=== PATIENT | male | born 1965 | race Native Hawaiian/Other Pacific Islander ===

== ENCOUNTER 2016-11-28 18:06 | Observation (INO) | payer BC ==
[2016-11-28] MEDS ORDERED: Sodium Chloride 0.9% 1,000 ML IV ONE (19:27)
--- NOTE | 2016-11-28 19:29 | C.PDOC ---
History Of Present Illness 51 year old male presents to the ED with complaints of intermittent chest pain to the left lateral chest wall area beginning last night. Patient states pain was most severe last night and he felt better this morning. He denies sweating, weakness, numbness, or shortness of breath. Chief Complaint (Nursing): Chest Pain History Per: Patient History/Exam Limitations: no limitations Onset/Duration Of Symptoms: Days (1 day ), Intermittent Episodes Current Symptoms Are (Timing): Still Present Severity: Severe Quality: "Pain" Recent travel outside of the [place]: No Past Medical History Reviewed: Historical Data, Nursing Documentation, Vital Signs Vital Signs: Last Vital Signs Temp 97.5 F L 11/29/16 02:38 Pulse 99 H 11/29/16 02:38 Resp 18 11/29/16 02:38 BP 148/65 11/29/16 02:38 Pulse Ox 100 11/29/16 02:38 - Medical History PMH: HTN, Hypercholesterolemia Family History: States: Unknown Family Hx - Social History Hx Alcohol Use: Yes Hx Substance Use: Yes - Immunization History Hx Tetanus Toxoid Vaccination: No Hx Influenza Vaccination: No Hx Pneumococcal Vaccination: No Review Of Systems Constitutional: Negative for: Fever, Chills, Sweats Cardiovascular: Positive for: Chest Pain. Negative for: Palpitations Respiratory: Negative for: Cough, Shortness of Breath Gastrointestinal: Negative for: Nausea, Vomiting, Abdominal Pain, Diarrhea Neurological: Negative for: Weakness, Numbness Physical Exam - Physical Exam Appears: Non-toxic, No Acute Distress Skin: Warm, Dry, No Diaphoretic Head: Atraumatic, Normacephalic Eye(s): bilateral: Normal Inspection, PERRL, EOMI Oral Mucosa: Moist Neck: Normal ROM, Supple Chest: Symmetrical, No Deformity, No Tenderness (non-reproducible on palpation ) Cardiovascular: Rhythm Regular, No Murmur Respiratory: Normal Breath Sounds, No Rales, No Rhonchi, No Wheezing Gastrointestinal/Abdominal: Soft, No Tenderness, No Distention, No Guarding, No Rebound Extremity: Normal ROM, No Tenderness, No Pedal Edema, No Calf Tenderness, Capillary Refill (good capillary refill, less than two seconds ), No Deformity, No Swelling Neurological/Psych: Oriented x3, Normal Speech, Normal Cognition, Normal Motor, Normal Sensation Gait: Steady ED Course And Treatment - Laboratory Results Result Diagrams: 11/28/16 19:29 11/28/16 19:29 ECG: Interpreted By Me, Viewed By Me ECG Rhythm: Sinus Rhythm, Nonspecific Changes ECG Interpretation: No Acute Changes, Abnormal Interpretation Of ECG: NSR, non spc. ST-T changes lateral leads. Rate From EC O2 Sat by Pulse Oximetry: 97 (room air ) Pulse Ox Interpretation: Normal - CT Scan/US CT Angiography Chest With Intravenous Contrast Other Rad Studies (CT/US): Read By Radiologist, Radiology Report Reviewed CT/US Interpretation: FINDINGS: Limitations: Motion artifact - mild. Pulmonary arteries: No pulmonary embolism. Aorta: No aneurysm. No dissection. Lungs: Minimal atelectasis/scarring. No consolidation. Few scattered peripheral reticulonodular. opacities. Few pulmonary nodules, up to 0.3 cm. Pleural space : No significant effusion. No pneumothorax. Heart: No cardiomegaly. No significant pericardial effusion. Bones/joints: No acute fracture. No dislocation. Soft tissues: Unremarkable. Lymph nodes: No pathologically enlarged lymph nodes. Kidneys and ureters: Too small to characterize lesion within LEFT kidney. IMPRESSION: 1. Reticulonodular opacities, nonspecific. Consider inflammatory, infectious, or less likely neoplastic. etiologies. 2. Pulmonary nodules. For low-risk patients, no follow-up is necessary. For high- risk patients. (smoking history or other known risk factors) an optional CT at 12 months could be performed. 3. Incidental/non-acute findings are described above. Progress Note: EKG, D-dimer, and CXR were ordered. Patient was given aspirin, toradol, and IV fluids. Disposition Discussed With : Shruthi Garcia Doctor Will See Patient In The: Hospital Counseled Patient/Family Regarding: Diagnosis - Disposition Disposition: HOSPITALIZED Disposition Time: 00:09 Condition: STABLE - POA Present On Arrival: None - Clinical Impression Clinical Impression: Chest pain - Scribe Statement The provider has reviewed the documentation as recorded by the Scribe Shivani iMller All medical record entries made by the Scribe were at my direction and personally dictated by me. I have reviewed the chart and agree that the record accurately reflects my personal performance of the history, physical exam, medical decision making, and the department course for this patient. I have also personally directed, reviewed, and agree with the discharge instructions and disposition.
[2016-11-28 19:35] LABS: BASO # 0.2 K/uL (0.0-0.2); BASO % 1.1 % (0.0-2.0); EOS # 0.9 K/uL (0.0-0.7); EOS % 5.2 % (0.0-4.0); HEMATOCRIT 39.7 % (35.0-51.0); LYMPH % 29.4 % (20.0-40.0); MEAN CELL VOLUME 92.3 fL (80.0-94.0); MEAN CORPUSCULAR HEMOGLOBIN 32.5 pg (27.0-31.0); MEAN CORPUSCULAR HGB CONC 35.2 g/dL (33.0-37.0); MEAN PLATELET VOLUME 10.3 fL (7.2-11.7); MONO # 0.8 K/uL (0.0-0.8); MONO % 4.9 % (0.0-10.0); NRBC % 0.1 % (0.0-2.0); RED CELL DISTRIBUTION WIDTH 13.4 % (11.5-14.5); WHITE BLOOD COUNT 16.9 K/uL (4.8-10.8)
[2016-11-28 19:43] LABS: CHLORIDE 104 mmol/L (98-107); POTASSIUM 3.9 mmol/L (3.6-5.2); SODIUM 140 mmol/L (132-148)
[2016-11-28 19:45] LABS: ALB/GLOB RATIO 1.2 (1.0-2.1); AST/SGOT 22 U/L (17-59); BILIRUBIN,TOTAL 0.4 mg/dL (0.2-1.3); CARBON DIOXIDE 22 mmol/L (22-30); GFR AFRICAN-AMERICAN > 60
[2016-11-28 19:46] LABS: ALKALINE PHOSPHATASE 67 U/L (38-126); ALT/SGPT 38 U/L (21-72); BLOOD UREA NITROGEN 17 mg/dL (9-20); CALCIUM 8.8 mg/dl (8.6-10.4); GLUCOSE,RANDOM 92 mg/dL (75-110)
[2016-11-28] MEDS ORDERED: Iohexol 300 100 ML IJ ONE (21:40)
--- NOTE | 2016-11-28 22:51 | CT ---
EXAM: CT Angiography Chest With Intravenous Contrast CLINICAL HISTORY: 51 years old, male; Pain; Chest pain; Left-sided chest pain; Additional info: Chest pain / elevated d-dimer TECHNIQUE: Axial computed tomographic angiography images of the chest with intravenous contrast using pulmonary embolism protocol. All CT scans at this facility use one or more dose reduction techniques, viz.: automated exposure control; ma/kV adjustment per patient size (including targeted exams where dose is matched to indication; i.e. head); or iterative reconstruction technique. MIP reconstructed images were created and reviewed. Coronal and sagittal reformatted images were created and reviewed. CONTRAST: 100 mL of omnipaque 300 administered intravenously. COMPARISON: No relevant prior studies available. FINDINGS: Limitations: Motion artifact - mild. Pulmonary arteries: No pulmonary embolism. Aorta: No aneurysm. No dissection. Lungs: Minimal atelectasis/scarring. No consolidation. Few scattered peripheral reticulonodular opacities. Few pulmonary nodules, up to 0.3 cm. Pleural space: No significant effusion. No pneumothorax. Heart: No cardiomegaly. No significant pericardial effusion. Bones/joints: No acute fracture. No dislocation. Soft tissues: Unremarkable. Lymph nodes: No pathologically enlarged lymph nodes. Kidneys and ureters: Too small to characterize lesion within LEFT kidney. IMPRESSION: 1. Reticulonodular opacities, nonspecific. Consider inflammatory, infectious, or less likely neoplastic etiologies. 2. Pulmonary nodules. For low-risk patients, no follow-up is necessary. For high-risk patients (smoking history or other known risk factors) an optional CT at 12 months could be performed. 3. Incidental/non-acute findings are described above.
--- NOTE | 2016-11-29 08:35 | RAD ---
HISTORY: chest pain COMPARISON: None available. TECHNIQUE: Chest PA and lateral FINDINGS: LUNGS: Biapical pleural thickening with upper lobe granulomatous changes. Diffuse increased interstitial lung markings. No focal infiltrate or effusion. PLEURA: No significant pleural effusion identified. No pneumothorax apparent. CARDIOVASCULAR: Normal. OSSEOUS STRUCTURES: No significant abnormalities. VISUALIZED UPPER ABDOMEN: Normal. OTHER FINDINGS: None. IMPRESSION: Biapical pleural thickening with upper lobe granulomatous changes. Diffuse increased interstitial lung markings. No focal infiltrate or effusion.
--- NOTE | 2016-11-29 08:53 | CP.PCM.PN ---
Subjective - Date & Time of Evaluation Date of Evaluation: 11/29/16 Time of Evaluation: 08:44 - Subjective Subjective: PGY-[address] Garcia's service: Pt seen and examined at bedside. Patient denies further episodes of chest pain overnight. He states he is able to tolerate diet, and walk halls without any further discomfort. Patient admits being referred by PMD to semiconductor manufacturing technician/ oncologist for persistent leukocytosis, but family at bedside does not remember name. They will bring in name with them later. Pt denies fever, chills, night sweats, recent travel, or sick contacts. Patient is a 51 year old male with PMHx of dyslipidemia and persistent leukocytosis, who presented to [facility] ED on 11/28/16 for chest pain. Patient reports the pain began late on Monday after eating salty/spicy food. He describes the pain as a "burning sensation" in his left chest, that lasted for "an hour or so", and did not radiate. Patient decided to come to hospital because of how long pain lasted. He denies recent stressors, anxiety, or lifting heavy objects. He denies metallic taste in mouth, cough, or increase in cavities. He further denies SOB, diaphoresis, leg edema, worsening with exertion , abdominal pain, fever/chills. Objective - Vital Signs/Intake and Output Vital Signs (last 24 hours): Temp Pulse Resp BP Pulse Ox 97.5 F L 67 20 148/65 97 11/29/16 02:38 11/29/16 04:21 11/29/16 04:05 11/29/16 02:38 11/29/16 04:23 - Medications Medications: Current Medications Aspirin (Ecotrin) 325 mg PO DAILY [facility] Clopidogrel Bisulfate (Plavix) 75 mg PO DAILY [facility] Enoxaparin Sodium (Lovenox) 40 mg SC DAILY [facility] Pantoprazole Sodium (Protonix Ec Tab) 40 mg PO DAILY [facility] Pneumococcal Polyvalent Vaccine (Pneumovax 23 Vaccine) 0.5 ml IM .ONCE ONE Stop: 12/02/16 14:01 - Labs Labs: 11/28/16 19:29 11/28/16 19:29 - Constitutional Appears: Non-toxic, No Acute Distress - Head Exam Head Exam: ATRAUMATIC, NORMOCEPHALIC - Eye Exam Eye Exam: EOMI, Normal appearance - ENT Exam ENT Exam: Mucous Membranes Moist - Neck Exam Neck Exam: Normal Inspection Additional comments: no jvd - Respiratory Exam Respiratory Exam: Clear to Ausculation Bilateral, NORMAL BREATHING PATTERN. absent: Rales, Rhonchi, Wheezes - Cardiovascular Exam Cardiovascular Exam: REGULAR RHYTHM, +S1, +S2 - GI/Abdominal Exam GI & Abdominal Exam: Soft, Normal Bowel Sounds. absent: Tenderness - Extremities Exam Extremities Exam: Normal Capillary Refill, Normal Inspection. absent: Tenderness - Back Exam Back Exam: absent: CVA tenderness (L), CVA tenderness (R) - Neurological Exam Neurological Exam: Alert, Awake, Oriented x3 Assessment and Plan - Assessment and Plan (Free Text) Plan: Chest pain - R/o ACS Admit to tele-obs EKG: NSR, 67 bpm, non-specific ST-t wave changes in lateral leads, early repolarization JENNIE panel: negative x 3 CXR (11/29/16): Biapical pleural thickening with upper lobe granulomatous changes. Diffuse increased interstitial lung markings. No focal infiltrates/ effusions (see full report) D-dimer: 248 CT Chest Angio (11/28/16): No pulmonary embolism. Reticulonodular opacities non- specific. Consider inflammatory, infectious, or neoplastic etiologies. Pulmonary nodules. Low-risk pts: no follow up necessary. For high risk pts ( smoking hx) optional CT at 12 months could be performed. Cardiology consult: Dr. Samuels, help appreciated - Atypical chest pain in pt with multiple risk factors - Exercise stress in AM - continue ASA/Plavix Elevated D-dimer D-dimer: 248 CT Chest Angio (11/28/16): Reticulonodular opacities non-specific. Consider inflammatory, infectious, or neoplastic etiologies. Pulmonary nodules. Low-risk pts: no follow up necessary. For high risk pts (smoking hx) optional CT at 12 months could be performed. (see report) - Pt with long-smoking history (25 years x 1/2 PPD), will need follow up CT in 12 months Leukocytosis WBC 16.9 on admission Pt admits referral to hem/onc by PMD for workup for persistent leukocytosis - family will bring in paperwork with doctor's name - will consider Hem consult, if that physician does not come to [facility] Pt afebrile - f/u on AM labs Prophylaxis Protonix 40 mg PO Daily Lovenox 40mg SC daily Pt ambulates Heart Healthy Diet Dallas Smith PGY-2 All medical management per Dr. Alexa Garcia.
[2016-11-29] MEDS: Aspirin 325 mg EC Tablets PO SCH (09:18)
[2016-11-29] MEDS: Pantoprazole 40 mg EC Tab PO SCH (09:18)
[2016-11-29] MEDS: Enoxaparin 40 mg Syringe SC SCH (09:19)
--- NOTE | 2016-11-29 18:38 | CP.PCM.CON ---
<CRESCENCIOANA ROSAMAHI - Last Filed: 11/29/16 18:38> History of Present Illness - History of Present Illness History of Present Illness: Alex Nieto DO PGY1 - Cardiology Consult Note for Dr. Samuels Consultation for chest pain HPI: 51 yo M with recently diagnosed hypertriglyceridemia, persistent leukocytosis, and chronic tobacco and alcohol abuse presented to ER complaining of CP. He reports that CP started last monday, after he ate some spicy food. Describes the pain as burning; nonradiating; lasted 1-2 hours then resolved spontaneously; worsened with deep inspiration. Denies exertional CP, SOB, abdominal pain, F/C, ROSALES, N/V, dizziness, diaphoresis, anxiety. PMH: Dyslipidemia PSH: None Meds: None Soc: Smokes 1/2 ppd x25 yrs; Drinks 8-10 beers 3 times per week; Denies illicits ; works as a general teller FHx: None All: NKDA ROS: As in HPI Past Patient History - Past Medical History & Family History Past Medical History?: Yes - Past Social History Smoking Status: Former Smoker - CARDIAC Hx Hypercholesterolemia: Yes Hx Hypertension: Yes - PULMONARY Hx Respiratory Disorders: No - NEUROLOGICAL Hx Neurological Disorder: No - HEENT Hx HEENT Problems: No - RENAL Hx Chronic Kidney Disease: No - ENDOCRINE/METABOLIC Hx Endocrine Disorders: No - HEMATOLOGICAL/ONCOLOGICAL Hx Blood Disorders: No - INTEGUMENTARY Hx Dermatological Problems: No - MUSCULOSKELETAL/RHEUMATOLOGICAL Hx Musculoskeletal Disorders: No Hx Falls: No - GASTROINTESTINAL Hx Gastrointestinal Disorders: No - GENITOURINARY/GYNECOLOGICAL Hx Genitourinary Disorders: No - PSYCHIATRIC Hx Substance Use: Yes - SURGICAL HISTORY Hx Surgeries: No - ANESTHESIA Hx Anesthesia: No Hx Anesthesia Reactions: No Hx Malignant Hyperthermia: No Has any member of the family had a problem w/ anesthesia?: No Meds Allergies/Adverse Reactions: Allergies Allergy/AdvReac Type Severity Reaction Status Date / Time No Known Allergies Allergy Unverified 11/28/16 18:17 - Medications Medications: Current Medications Aspirin (Ecotrin) 325 mg PO DAILY [facility] Last Admin: 11/29/16 09:18 Dose: 325 mg Clopidogrel Bisulfate (Plavix) 75 mg PO DAILY [facility] Last Admin: 11/29/16 09:18 Dose: 75 mg Enoxaparin Sodium (Lovenox) 40 mg SC DAILY [facility] Last Admin: 11/29/16 09:19 Dose: 40 mg Pantoprazole Sodium (Protonix Ec Tab) 40 mg PO DAILY [facility] Last Admin: 11/29/16 09:18 Dose: 40 mg Pneumococcal Polyvalent Vaccine (Pneumovax 23 Vaccine) 0.5 ml IM .ONCE ONE Stop: 12/02/16 14:01 Physical Exam - Constitutional Appears: Non-toxic, No Acute Distress - Head Exam Head Exam: ATRAUMATIC, NORMOCEPHALIC - Eye Exam Eye Exam: EOMI, Normal appearance - ENT Exam ENT Exam: Mucous Membranes Moist - Neck Exam Neck exam: Positive for: Full Rom, Normal Inspection - Respiratory Exam Respiratory Exam: Clear to Auscultation Bilateral, NORMAL BREATHING PATTERN. absent: Rales, Rhonchi, Wheezes - Cardiovascular Exam Cardiovascular Exam: RRR, +S1, +S2 - GI/Abdominal Exam GI & Abdominal Exam: Soft. absent: Tenderness - Extremities Exam Extremities exam: Negative for: calf tenderness, pedal edema - Neurological Exam Neurological exam: Alert, Oriented x3 - Psychiatric Exam Psychiatric exam: Normal Affect, Normal Mood - Skin Skin Exam: Dry, Intact Results - Vital Signs Recent Vital Signs: Last Vital Signs Temp 98.3 F 11/29/16 15:17 Pulse 66 11/29/16 15:17 Resp 18 11/29/16 15:17 BP 108/69 11/29/16 15:17 Pulse Ox 98 11/29/16 15:17 - Labs Result Diagrams: 11/28/16 19:29 11/28/16 19:29 Labs: Laboratory Results - last 24 hr 11/28/16 11/28/16 11/28/16 19:29 19:29 20:25 WBC 16.9 H RBC 4.30 L Hgb 14.0 D Hct 39.7 MCV 92.3 MCH 32.5 H MCHC 35.2 RDW 13.4 Plt Count 201 MPV 10.3 Neut % (Auto) 59.4 Lymph % (Auto) 29.4 [place] % (Auto) 4.9 Eos % (Auto) 5.2 H Baso % (Auto) 1.1 Neut # 10.0 H Lymph # 5.0 H [place] # 0.8 Eos # 0.9 H Baso # 0.2 D-Dimer, Quantitative 248 H Sodium 140 Potassium 3.9 Chloride 104 Carbon Dioxide 22 Anion Gap 19 BUN 17 Creatinine 0.8 Est GFR ( Amer) > 60 Est GFR (Non-Af Amer) > 60 Random Glucose 92 Calcium 8.8 Total Bilirubin 0.4 AST 22 ALT 38 Alkaline Phosphatase 67 Total Creatine Kinase CK-MB (Mass) Troponin I < 0.0120 Troponin I, Quant Total Protein 7.0 Albumin 3.8 Globulin 3.2 Albumin/Globulin Ratio 1.2 11/29/16 11/29/16 04:00 11:27 WBC RBC Hgb Hct MCV MCH MCHC RDW Plt Count MPV Neut % (Auto) Lymph % (Auto) [place] % (Auto) Eos % (Auto) Baso % (Auto) Neut # Lymph # [place] # Eos # Baso # D-Dimer, Quantitative Sodium Potassium Chloride Carbon Dioxide Anion Gap BUN Creatinine Est GFR ( Amer) Est GFR (Non-Af Amer) Random Glucose Calcium Total Bilirubin AST ALT Alkaline Phosphatase Total Creatine Kinase 49 L 63 CK-MB (Mass) < 0.22 0.24 Troponin I Troponin I, Quant < 0.0120 < 0.0120 Total Protein Albumin Globulin Albumin/Globulin Ratio Assessment & Plan - Assessment and Plan (Free Text) Assessment: 51 yo M with PMH significant for hypertriglyceridemia, chronic alcohol and tobacco abuse, presented to ER with burning chest pain. Plan: 1. Chest pain - Patient had atypical chest pain, burning in nature, nonexertional, associated with meals; now resolved - Troponins negative x3, EKG shows NSR, early repolarizations - Though pain is atypical, patient has multiple risk factors for CAD - Counselled on smoking cessation and abstinence from alcohol at length - Exercise stress test in AM for risk stratification - Meanwhile, continue ASA and plavix 2. Leukocytosis - Patient reportedly had elevated white count for several months - Has been worked up by dresser tender outpatient - Currently afebrile; No other signs of infectious process - Denies F/C, night sweats, weight loss, easy bruising/bleeding - Continue to monitor Patient seen, discussed, and reviewed with attending <Singh Samuels - Last Filed: 11/30/16 15:06> Meds - Medications Medications: Current Medications Aspirin (Ecotrin) 325 mg PO DAILY [facility] Last Admin: 11/30/16 11:00 Dose: 325 mg Clopidogrel Bisulfate (Plavix) 75 mg PO DAILY [facility] Last Admin: 11/30/16 11:00 Dose: 75 mg Enoxaparin Sodium (Lovenox) 40 mg SC DAILY [facility] Last Admin: 11/30/16 11:00 Dose: 40 mg Pantoprazole Sodium (Protonix Ec Tab) 40 mg PO DAILY [facility] Last Admin: 11/30/16 11:00 Dose: 40 mg Pneumococcal Polyvalent Vaccine (Pneumovax 23 Vaccine) 0.5 ml IM .ONCE ONE Stop: 12/02/16 14:01 Results - Vital Signs Recent Vital Signs: Last Vital Signs Temp 98.6 F 11/30/16 07:30 Pulse 65 11/30/16 07:30 Resp 18 11/30/16 07:30 BP 117/76 11/30/16 07:30 Pulse Ox 98 11/30/16 07:30 - Labs Result Diagrams: 11/30/16 11:14 11/30/16 11:14 Labs: Laboratory Results - last 24 hr 11/29/16 11/30/16 11/30/16 19:44 11:14 11:14 WBC 16.1 H RBC 4.57 Hgb 14.6 Hct 42.4 MCV 92.8 MCH 31.8 H MCHC 34.3 RDW 13.5 Plt Count 209 MPV 10.6 Neut % (Auto) 67.2 Lymph % (Auto) 24.6 [place] % (Auto) 5.3 Eos % (Auto) 2.0 Baso % (Auto) 0.9 Neut # 10.8 H Lymph # 3.9 [place] # 0.8 Eos # 0.3 Baso # 0.1 Sodium 141 Potassium 4.3 Chloride 101 Carbon Dioxide 25 Anion Gap 20 BUN 13 Creatinine 0.9 Est GFR ( Amer) > 60 Est GFR (Non-Af Amer) > 60 Random Glucose 82 Calcium 9.2 Total Bilirubin 0.7 AST 25 ALT 35 Alkaline Phosphatase 57 Total Creatine Kinase 54 L CK-MB (Mass) < 0.22 Troponin I, Quant < 0.0120 Total Protein 7.5 Albumin 4.1 Globulin 3.3 Albumin/Globulin Ratio 1.2 Attending/Attestation - Attestation I have personally seen and examined this patient.: Yes I have fully participated in the care of the patient.: Yes I have reviewed all pertinent clinical information: Yes Notes (Text): 11/30/16 15:04 51 year old male with hx of hypertriglyceridemia , chronic leukocytosis and 30 pack year smoker presenting with sx of atypical chest pain plan for ischemic evaluation with stress test keep pt on asa, bb , statins
--- NOTE | 2016-11-29 20:35 | CP.PCM.HP ---
Past Patient History - Past Medical History & Family History Past Medical History?: Yes - Past Social History Smoking Status: Former Smoker - CARDIAC Hx Hypercholesterolemia: Yes Hx Hypertension: Yes - PULMONARY Hx Respiratory Disorders: No - NEUROLOGICAL Hx Neurological Disorder: No - HEENT Hx HEENT Problems: No - RENAL Hx Chronic Kidney Disease: No - ENDOCRINE/METABOLIC Hx Endocrine Disorders: No - HEMATOLOGICAL/ONCOLOGICAL Hx Blood Disorders: No - INTEGUMENTARY Hx Dermatological Problems: No - MUSCULOSKELETAL/RHEUMATOLOGICAL Hx Musculoskeletal Disorders: No Hx Falls: No - GASTROINTESTINAL Hx Gastrointestinal Disorders: No - GENITOURINARY/GYNECOLOGICAL Hx Genitourinary Disorders: No - PSYCHIATRIC Hx Substance Use: Yes - SURGICAL HISTORY Hx Surgeries: No - ANESTHESIA Hx Anesthesia: No Hx Anesthesia Reactions: No Hx Malignant Hyperthermia: No Has any member of the family had a problem w/ anesthesia?: No Meds Allergies/Adverse Reactions: Allergies Allergy/AdvReac Type Severity Reaction Status Date / Time No Known Allergies Allergy Unverified 11/28/16 18:17 Physical Exam - Constitutional Appears: Well - Head Exam Head Exam: ATRAUMATIC, NORMAL INSPECTION, NORMOCEPHALIC - Eye Exam Eye Exam: EOMI, Normal appearance, PERRL Pupil Exam: NORMAL ACCOMODATION, PERRL - ENT Exam ENT Exam: Mucous Membranes Moist, Normal Exam - Neck Exam Neck exam: Positive for: Normal Inspection - Respiratory Exam Respiratory Exam: Decreased Breath Sounds - Cardiovascular Exam Cardiovascular Exam: REGULAR RHYTHM, +S1, +S2 - GI/Abdominal Exam GI & Abdominal Exam: Diminished Bowel Sounds, Soft - Rectal Exam Rectal Exam: Deferred Results - Vital Signs Recent Vital Signs: Last Vital Signs Temp 98.3 F 11/29/16 15:17 Pulse 66 11/29/16 15:17 Resp 18 11/29/16 15:17 BP 108/69 11/29/16 15:17 Pulse Ox 98 11/29/16 15:17 - Labs Result Diagrams: 11/28/16 19:29 11/28/16 19:29 Labs: Laboratory Results - last 24 hr 11/28/16 11/29/16 11/29/16 20:25 04:00 11:27 D-Dimer, Quantitative 248 H Total Creatine Kinase 49 L 63 CK-MB (Mass) < 0.22 0.24 Troponin I, Quant < 0.0120 < 0.0120 11/29/16 19:44 D-Dimer, Quantitative Total Creatine Kinase 54 L CK-MB (Mass) < 0.22 Troponin I, Quant < 0.0120
[2016-11-30 09:29] VITALS: PULSE 65; RESP 18
--- NOTE | 2016-11-30 09:52 | CP.PCM.PN ---
Subjective - Date & Time of Evaluation Date of Evaluation: 11/30/16 Time of Evaluation: 13:00 - Subjective Subjective: PGY3 on medicine Dr. Garcia service: Pt seen and examined at bedside afternoon with attending. Pt tolerated procedure well and in good spirit. Pt was later cleared for discharge per Dr. Samuels. Pt to be given script for Toprol XL 12.5mg PO daily, Zetia 10mg PO daily , Crestor 10mg PO daily and ASA 325mg PO daily. Pt said he already has appointment with Dr. Samuels. Objective - Vital Signs/Intake and Output Vital Signs (last 24 hours): Temp Pulse Resp BP Pulse Ox 98.6 F 65 18 117/76 98 11/30/16 07:30 11/30/16 07:30 11/30/16 07:30 11/30/16 07:30 11/30/16 07:30 Intake and Output: 11/30/16 11/30/16 06:59 18:59 Intake Total 480 Balance 480 - Medications Medications: Current Medications Aspirin (Ecotrin) 325 mg PO DAILY [facility] Last Admin: 11/29/16 09:18 Dose: 325 mg Clopidogrel Bisulfate (Plavix) 75 mg PO DAILY [facility] Last Admin: 11/29/16 09:18 Dose: 75 mg Enoxaparin Sodium (Lovenox) 40 mg SC DAILY [facility] Last Admin: 11/29/16 09:19 Dose: 40 mg Pantoprazole Sodium (Protonix Ec Tab) 40 mg PO DAILY [facility] Last Admin: 11/29/16 09:18 Dose: 40 mg Pneumococcal Polyvalent Vaccine (Pneumovax 23 Vaccine) 0.5 ml IM .ONCE ONE Stop: 12/02/16 14:01 - Labs Labs: 11/28/16 19:29 11/28/16 19:29 - Constitutional Appears: Non-toxic, No Acute Distress - Head Exam Head Exam: NORMOCEPHALIC - Eye Exam Eye Exam: Normal appearance Pupil Exam: NORMAL ACCOMODATION - ENT Exam ENT Exam: Mucous Membranes Moist - Respiratory Exam Respiratory Exam: Clear to Ausculation Bilateral, NORMAL BREATHING PATTERN. absent: Rhonchi, Wheezes - Cardiovascular Exam Cardiovascular Exam: REGULAR RHYTHM, +S1, +S2. absent: Gallop, Rubs - GI/Abdominal Exam GI & Abdominal Exam: Soft, Normal Bowel Sounds. absent: Tenderness - Neurological Exam Neurological Exam: Alert, Awake, Oriented x3 - Psychiatric Exam Psychiatric exam: Normal Mood - Skin Skin Exam: Intact
[2016-11-30] MEDS: Aspirin 325 mg EC Tablets PO SCH (11:00)
[2016-11-30] MEDS: Enoxaparin 40 mg Syringe SC SCH (11:00)
[2016-11-30] MEDS: Pantoprazole 40 mg EC Tab PO SCH (11:00)
[2016-11-30 11:39] LABS: CHLORIDE 101 mmol/L (98-107); POTASSIUM 4.3 mmol/L (3.6-5.2); SODIUM 141 mmol/L (132-148)
[2016-11-30 11:42] LABS: BILIRUBIN,TOTAL 0.7 mg/dL (0.2-1.3); CARBON DIOXIDE 25 mmol/L (22-30); GFR AFRICAN-AMERICAN > 60
[2016-11-30 11:43] LABS: ALB/GLOB RATIO 1.2 (1.0-2.1); ALKALINE PHOSPHATASE 57 U/L (38-126); ALT/SGPT 35 U/L (21-72); AST/SGOT 25 U/L (17-59); BLOOD UREA NITROGEN 13 mg/dL (9-20); CALCIUM 9.2 mg/dl (8.6-10.4); GLUCOSE,RANDOM 82 mg/dL (75-110); TOTAL PROTEIN 7.5 g/dL (6.3-8.3)
[2016-11-30 12:09] LABS: BASO # 0.1 K/uL (0.0-0.2); BASO % 0.9 % (0.0-2.0); EOS # 0.3 K/uL (0.0-0.7); HEMATOCRIT 42.4 % (35.0-51.0); LYMPH # 3.9 K/uL (1.0-4.3); LYMPH % 24.6 % (20.0-40.0); MEAN CELL VOLUME 92.8 fL (80.0-94.0); MEAN CORPUSCULAR HEMOGLOBIN 31.8 pg (27.0-31.0); MEAN CORPUSCULAR HGB CONC 34.3 g/dL (33.0-37.0); MEAN PLATELET VOLUME 10.6 fL (7.2-11.7); MONO # 0.8 K/uL (0.0-0.8); MONO % 5.3 % (0.0-10.0); NRBC % 0.1 % (0.0-2.0); RED CELL DISTRIBUTION WIDTH 13.5 % (11.5-14.5); WHITE BLOOD COUNT 16.1 K/uL (4.8-10.8)
--- NOTE | 2016-11-30 15:09 | CP.PCM.PN ---
<SUJEY NIETO - Last Filed: 11/30/16 15:06> Subjective - Date & Time of Evaluation Date of Evaluation: 11/30/16 Time of Evaluation: 10:40 - Subjective Subjective: Sujey Nieto DO PGY1 - Cardiology Progress Note for Dr. Samuels Patient seen and examined at bedside this AM. No events overnight. Patient reports that he is no longer having any CP, and denies any palpitations, SOB, cough, abdominal pain, N/V/D/C, F/C, ROSALES, dizziness, leg pain/swelling. He was taken for exercise and nuclear stress test today, which he tolerated well, with no complications. Objective - Vital Signs/Intake and Output Vital Signs (last 24 hours): Temp Pulse Resp BP Pulse Ox 98.6 F 65 18 117/76 98 11/30/16 07:30 11/30/16 07:30 11/30/16 07:30 11/30/16 07:30 11/30/16 07:30 Intake and Output: 11/30/16 11/30/16 06:59 18:59 Intake Total 480 Balance 480 - Medications Medications: Current Medications Aspirin (Ecotrin) 325 mg PO DAILY [facility] Last Admin: 11/30/16 11:00 Dose: 325 mg Clopidogrel Bisulfate (Plavix) 75 mg PO DAILY [facility] Last Admin: 11/30/16 11:00 Dose: 75 mg Enoxaparin Sodium (Lovenox) 40 mg SC DAILY [facility] Last Admin: 11/30/16 11:00 Dose: 40 mg Pantoprazole Sodium (Protonix Ec Tab) 40 mg PO DAILY [facility] Last Admin: 11/30/16 11:00 Dose: 40 mg Pneumococcal Polyvalent Vaccine (Pneumovax 23 Vaccine) 0.5 ml IM .ONCE ONE Stop: 12/02/16 14:01 - Labs Labs: 11/30/16 11:14 11/30/16 11:14 - Constitutional Appears: Non-toxic, No Acute Distress - Head Exam Head Exam: ATRAUMATIC, NORMOCEPHALIC - Eye Exam Eye Exam: EOMI, Normal appearance - ENT Exam ENT Exam: Mucous Membranes Moist - Neck Exam Neck Exam: Full ROM, Normal Inspection - Respiratory Exam Respiratory Exam: Clear to Ausculation Bilateral. absent: Rales, Rhonchi, Wheezes - Cardiovascular Exam Cardiovascular Exam: RRR, +S1, +S2 - GI/Abdominal Exam GI & Abdominal Exam: Soft. absent: Tenderness - Extremities Exam Extremities Exam: absent: Calf Tenderness, Pedal Edema - Neurological Exam Neurological Exam: Alert, Awake, Oriented x3 - Psychiatric Exam Psychiatric exam: Normal Affect, Normal Mood - Skin Skin Exam: Dry, Intact Assessment and Plan - Assessment and Plan (Free Text) Assessment: 51 yo M with PMH significant for hypertriglyceridemia, chronic alcohol and tobacco abuse, presented to ER with burning chest pain. Plan: 1. Chest pain - Patient had atypical chest pain, burning in nature, nonexertional, associated with meals; now resolved - Troponins negative x3, EKG shows NSR, early repolarizations - Though pain is atypical, patient has multiple risk factors for CAD - Again counselled on smoking cessation and abstinence from alcohol at length - Exercise and nuclear stress test completed today, showed equivocal findings on EKG during exercise, but no signs of ischemia on nuclear imaging - Patient should continue daily ASA, lipid lowering therapy, BB - May be discharged with outpatient follow up in 1-2 weeks 2. Hypertriglyceridema - Triglycerides 309 on previous lipid panel 10/2016, otherwise normal - Start Crestor 10mg daily and Zetia 10mg daily 3. Leukocytosis - Patient reportedly had elevated white count for several months - Has been worked up by [facility] outpatient - Currently afebrile; No other signs of infectious process - Denies F/C, night sweats, weight loss, easy bruising/bleeding - Continue to monitor Patient seen, discussed, and reviewed with attending <Singh Samuels - Last Filed: 12/01/16 01:51> Objective - Vital Signs/Intake and Output Vital Signs (last 24 hours): Temp Pulse Resp BP Pulse Ox 98 F 65 18 117/73 100 11/30/16 16:00 11/30/16 16:00 11/30/16 16:00 11/30/16 16:00 11/30/16 16:00 - Labs Labs: 11/30/16 11:14 11/30/16 11:14 Attending/Attestation - Attestation I have personally seen and examined this patient.: Yes I have fully participated in the care of the patient.: Yes I have reviewed all pertinent clinical information, including history, physical exam and plan: Yes Notes (Text): 12/01/16 01:51 Patient underwent exercise nuclear stress test today EKG showed equivocal changes nuclear images no evidence to suggest ischemia stable to dc home GDMT /risk factor modification
[2016-11-30 16:09] VITALS: BP 117/73; TEMP 98; O2SAT 100
[2016-12-02] MEDS ORDERED: Pneumococcal 23-Valent Vaccine IM ONE (14:00)
== END 2016-11-30 17:05 | disposition home or self-care (01) ==
LOC: C.ER 18:06 → C.9E 11-29 00:11 → C.6T 11-29 03:24
PROVIDERS: ADMIT Internal Medicine Nephrology; ATTEND Internal Medicine Nephrology
DX: R07.89 Other chest pain (principal); D72.829 Elevated white blood cell count, unspecified; E78.5 Hyperlipidemia, unspecified; F10.10 Alcohol abuse, uncomplicated; F17.210 Nicotine dependence, cigarettes, uncomplicated; I10 Essential (primary) hypertension
CPT/HCPCS: 36415; 71020; 71275; 80053; 84484; 85025; 85378; 96374; 99285; G0378; J1650; J1885; J7040; Q9967